=== PATIENT | male | born 1975 | race Caucasian/White ===

== ENCOUNTER 2020-12-22 10:38 | Outpatient (CLI) | payer SELFPAY ==
[2020-12-22 21:11] LABS: SARS-CoV-2 PCR by NAA Not Detected (NotDetected)
== END 2020-12-22 10:39 | disposition home or self-care (01) ==
LOC: LABBT 10:38
PROVIDERS: ATTEND Orthopaedic Surgery
DX: Z01.812 Encounter for preprocedural laboratory examination (principal); S46.011A Strain of muscle(s) and tendon(s) of the rotator cuff of right shoulder, initial encounter; Z20.822 Contact with and (suspected) exposure to COVID-19
CPT/HCPCS: U0003; U0005

== ENCOUNTER → 2020-12-26 | Day surgery (SDC) | payer OTHER ==
[~2020-12-26] MED LIST: Fentanyl 100 MCG/2 ML VIAL ONE; Midazolam HCl 2 mg/2 ml Vial ONE; Ropivacaine 0.5% HCl/PF (150 MG/30 ML VIAL) ONE; Sodium Chloride 0.9% 10 ML ONE
== END ==
LOC: SDC 14:38
PROVIDERS: ATTEND Orthopaedic Surgery
PROC: 3E0T3BZ Introduction of Anesthetic Agent into Peripheral Nerves and Plexi, Percutaneous Approach (ICD-10-PCS; principal; 2020-12-26)
DX: G89.18 Other acute postprocedural pain (principal); M25.511 Pain in right shoulder
CPT/HCPCS: J2250; J2795; J3010